=== PATIENT | female | born 1955 | race Caucasian/White ===

== ENCOUNTER 2020-01-28 17:14 | Emergency (ER) | payer MEDICARE, OTHER ==
[~2020-01-28 17:14] MED LIST: ATENOLOL/CHLORT1 TA1 PO; AZO-SULFISOXAZO1 TA1 PO; HUMIRA40 MG/0.2 SC; LEVAQUIN 750MG750 M1 PO; LEVOXYL0.15 MG PO; MASON NATURAL1000 IU PO; METHOTREXATE2.5 M1 PO
[2020-01-28] MEDS ORDERED: ATENOLOL/CHLORT1 TA1 PO (18:14)
[2020-01-28] MEDS ORDERED: AMLODIPINE BES2.5 MG PO (18:15)
[2020-01-28] MEDS ORDERED: INFLECTRA100 MG IV (18:15)
[2020-01-28] MEDS ORDERED: OMEGA 3 1,0001 EACH PO (18:16)
[2020-01-28] MEDS ORDERED: ASPIRIN E.C. 8181 MG PO (18:16)
[2020-01-28] MEDS ORDERED: FOLIC ACID1 MG PO (18:17)
[2020-01-28] MEDS ORDERED: PROBIOTIC1 EAC3 PO (18:17)
[2020-01-28 19:13] VITALS: BP 152/72
== END 2020-01-28 19:15 | disposition home or self-care (01) ==
LOC: ED 17:14
DX: T80.61XA Other serum reaction due to administration of blood and blood products, initial encounter (principal); Z79.82 Long term (current) use of aspirin

== ENCOUNTER 2020-08-11 13:45 | Outpatient (RCR) | payer MEDICARE, OTHER ==
[~2020-08-11 13:45] MED LIST changes: +AMLODIPINE BES2.5 MG PO; +ASPIRIN E.C. 8181 MG PO; +FOLIC ACID1 MG PO; +INFLECTRA100 MG IV; +OMEGA 3 1,0001 EACH PO; +PROBIOTIC1 EAC3 PO
== END 2020-08-11 14:30 | disposition still patient (30) ==
LOC: PT 13:45
DX: M25.561 Pain in right knee (principal); Z96.651 Presence of right artificial knee joint

== ENCOUNTER → 2023-01-27 | Outpatient (CLI) | payer MEDICARE, OTHER | LOC: PT 08:00 | DX: M25.562 Pain in left knee (principal) ==

== ENCOUNTER 2023-02-14 08:52 | Outpatient (RCR) | payer MEDICARE, OTHER | END 2023-02-18 | disposition home or self-care (01) | LOC: PT | DX: Z96.652 Presence of left artificial knee joint (principal) ==